=== PATIENT | female | born 1980 | race Two or more races ===

== ENCOUNTER 2016-06-05 17:57 | Emergency (ER) | payer MEDICAID, MEDICARE, OTHER ==
[~2016-06-05] VITALS: Ht 167.6 cm; Wt 517.1 kg
[~2016-06-05 17:57] MED LIST: GABAPENTIN600 MG ORAL; LAMOTRIGINE ORAL; LEVOTHYROXINE150 MCG ORAL; LEXAPRO20 MG ORAL; QUETIAPINE FUMA25 MG ORAL; VITAMIN D1000 UNI1 ORAL; [UNRECOGNIZED DRUG - OTHER] ORAL
[2016-06-05 18:02] VITALS: BP 128/86
[2016-06-05] MEDS ORDERED: Naloxone 1mg/ml 2ml IVP ONE (18:15)
[2016-06-05 18:37] LABS: BASOPHILS % (AUTO) 1.5 % (0.0-2.0); LYMPHOCYTES % (AUTO) 32.2 % (20.0-45.0); MEAN CORPUSCULAR HEMOGLOBIN 31.5 PG (27.0-31.0); MEAN CORPUSCULAR HGB CONC 33.4 G/DL (32.0-36.0); MEAN CORPUSCULAR VOLUME 94 FL (80-99); MEAN PLATELET VOLUME 5.7 FL (6.5-10.1); MONOCYTES % (AUTO) 7.4 % (1.0-10.0); NEUTROPHILS % (AUTO) 55.9 % (45.0-75.0); PLATELET COUNT 253 K/UL (150-450); RED CELL DISTRIBUTION WIDTH 12.2 % (11.6-14.8); WHITE BLOOD COUNT 7.4 K/UL (4.8-10.8)
[2016-06-05 18:48] LABS: ACETAMINOPHEN < 10 ug/mL (10-30); ALANINE AMINOTRANSFERASE 10 U/L (3-33); ALBUMIN/GLOBULIN RATIO 1.3 (1.0-2.7); ALCOHOL < 10 mg/dL; ANION GAP 17 (5-15); ASPARTATE AMINO TRANSFERASE 19 U/L (5-40); CALCIUM 8.1 mg/dL (8.6-10.2); CARBON DIOXIDE 21 mEQ/L (20-30); CHLORIDE 100 mEQ/L (98-107); CREATININE 0.8 mg/dL (0.5-0.9); GLOMERULAR FILTRATION RATE > 60 mL/min (>60); HEMOLYSIS 82; POTASSIUM 3.9 mEQ/L (3.4-4.9); SODIUM 138 mEQ/L (135-145); TOTAL PROTEIN 6.9 g/dL (6.6-8.7)
[2016-06-05 18:58] LABS: THYROID STIMULATING HORMONE 0.396 uIU/mL (0.300-4.500)
[2016-06-05 19:15] VITALS: BP 125/89
[2016-06-05] MEDS ORDERED: QUETIAPINE FUM300 MG ORAL (19:23)
[2016-06-05] MEDS ORDERED: TEMAZEPAM15 MG ORAL (19:23)
[2016-06-05] MEDS ORDERED: LEXAPRO20 MG ORAL (19:23)
[2016-06-05] MEDS ORDERED: ALPRAZOLAM2 MG ORAL (19:23)
[2016-06-05] MEDS ORDERED: QUETIAPINE FUMA50 MG ORAL (19:23)
[2016-06-05] MEDS ORDERED: MIRTAZAPINE15 M3 ORAL (19:23)
[2016-06-05 19:24] LABS: APPEARANCE,URINE CLEAR; KETONES,URINE NEGATIVE (NEGATIVE); LEUKOCYTE ESTERASE ,URINE NEGATIVE (NEGATIVE); NITRITE,URINE NEGATIVE (NEGATIVE); PH,URINE 6 (4.5-8.0); PROTEIN,URINE NEGATIVE (NEGATIVE); UROBILINOGEN,URINE NORMAL MG/DL (0.0-1.0)
--- NOTE | 2016-06-05 19:51 | Emergency Room Report ---
History of Present Illness General Chief Complaint: Altered Level of Consciousness Source: EMS Present Illness HPI This patient is brought in by EMS for altered mental status. The patient has a history of drug abuse including heroin. EMS reports that they were called by her boyfriend he reports that she became altered suddenly and was not arousable. There is no history of alcohol use. There is no history of trauma. The patient was discharged from rehabilitation today. There is no other history available. Allergies: Coded Allergies: CODEINE (Verified Adverse Reaction, Severe, nausea, 06/05/16) Patient History Past Medical History: see triage record, psych hx, other - Hx of drug abuse Past Surgical History: other - Thyroid Social History: Reports: drug use Reviewed Nursing Documentation: PMH: Agreed, PSxH: Agreed Nursing Documentation-PMH Hx Cardiac Problems: No Hx Hypertension: No Hx Pacemaker: No Hx Asthma: No Hx COPD: No Hx Diabetes: No Hx Cancer: Yes - thyroid Hx Gastrointestinal Problems: No - drug abuse Hx Dialysis: No Hx Neurological Problems: Yes Hx Cerebrovascular Accident: No Hx Seizures: No Review of Systems All Other Systems: limited Physical Exam Vital Signs Date Time Temp Pulse Resp B/P Pulse Ox O2 Delivery O2 Flow Rate FiO2 06/05/16 17:50 98.1 86 16 130/80 98 Room Air Sp02 EP Interpretation: reviewed, normal General Appearance: no apparent distress, non-toxic, other - obutunded but localizes to pain Head: normocephalic, atraumatic Eyes: bilateral eye PERRL, bilateral eye normal inspection ENT: normal pharynx, no angioedema, normal voice Neck: full range of motion Respiratory: chest non-tender, lungs clear, normal breath sounds, no respiratory distress, no retraction, no accessory muscle use Cardiovascular #1: regular rate, rhythm, no edema Gastrointestinal: normal bowel sounds, soft, non-distended, no guarding, no rebound Rectal: deferred Musculoskeletal: back normal, normal range of motion Neurologic: sensory intact, other - obtunded, unable to fully assess. Non- focal Skin: normal color, no rash, warm/dry, well hydrated Medical Decision Making Diagnostic Impression: Primary Impression: Altered level of consciousness Additional Impressions: Drug abuse Benzodiazepine overdose ER Course This patient presents with altered mental status. She is a known history of drug abuse of heroin abuse. She was given Narcan and had a short time frame of increased alertness. She underwent basic laboratory workup to include CBC, CMP , thyroid function past, urinalysis, urine drug screen, tox screen and test. She was found to have positive benzodiazepines in her urinalysis. This would explain her decreased mentation. She did maintain her airway and did not require any airway intervention. I also felt that given her stable vital signs and that she is protecting her airway, she did not need flumazenil as the risk outweighs the benefit. She was allowed to detox in the emergency department. Anticipate discharge home if the patient clears her mental status. This patient is turned over to Dr. Chong. Labs Test 06/05/16 18:10 06/05/16 18:22 White Blood Count 7.4 K/UL (4.8-10.8) Red Blood Count 3.40 M/UL (4.20-5.40) Hemoglobin 10.7 G/DL (12.0-16.0) Hematocrit 32.0 % (37.0-47.0) Mean Corpuscular Volume 94 FL (80-99) Mean Corpuscular Hemoglobin 31.5 PG (27.0-31.0) Mean Corpuscular Hemoglobin Concent 33.4 G/DL (32.0-36.0) Red Cell Distribution Width 12.2 % (11.6-14.8) Platelet Count 253 K/UL (150-450) Mean Platelet Volume 5.7 FL (6.5-10.1) Neutrophils (%) (Auto) 55.9 % (45.0-75.0) Lymphocytes (%) (Auto) 32.2 % (20.0-45.0) Monocytes (%) (Auto) 7.4 % (1.0-10.0) Eosinophils (%) (Auto) 3.0 % (0.0-3.0) Basophils (%) (Auto) 1.5 % (0.0-2.0) Sodium Level 138 mEQ/L (135-145) Potassium Level 3.9 mEQ/L (3.4-4.9) Chloride Level 100 mEQ/L (98-107) Carbon Dioxide Level 21 mEQ/L (20-30) Anion Gap 17 (5-15) Blood Urea Nitrogen 17 mg/dL (7-23) Creatinine 0.8 mg/dL (0.5-0.9) Estimat Glomerular Filtration Rate > 60 mL/min (>60) Glucose Level 120 mg/dL (74-106) Calcium Level 8.1 mg/dL (8.6-10.2) Total Bilirubin < 0.2 mg/dL (0.0-1.2) Aspartate Amino Transf (AST/SGOT) 19 U/L (5-40) Alanine Aminotransferase (ALT/SGPT) 10 U/L (3-33) Alkaline Phosphatase 48 U/L (35-104) Total Protein 6.9 g/dL (6.6-8.7) Albumin 4.0 g/dL (3.5-5.2) Globulin 2.9 g/dL Albumin/Globulin Ratio 1.3 (1.0-2.7) Thyroid Stimulating Hormone (TSH) 0.396 uIU/mL (0.300-4.500) Salicylates Level < 1 mg/dL (10-30) Acetaminophen Level < 10 ug/mL (10-30) Serum Alcohol < 10 mg/dL Urine Color Pale yellow Urine Appearance Clear Urine pH 6 (4.5-8.0) Urine Specific [place] 1.020 (1.005-1.035) Urine Protein Negative (NEGATIVE) Urine Glucose (UA) Negative (NEGATIVE) Urine Ketones Negative (NEGATIVE) Urine Occult Blood Negative (NEGATIVE) Urine Nitrite Negative (NEGATIVE) Urine Bilirubin Negative (NEGATIVE) Urine Urobilinogen Normal MG/DL (0.0-1.0) Urine Leukocyte Esterase Negative (NEGATIVE) Urine HCG, Qualitative Negative Urine Opiates Screen Negative (NEGATIVE) Urine Barbiturates Screen Negative (NEGATIVE) Phencyclidine (PCP) Screen Negative (NEGATIVE) Urine Amphetamines Screen Negative (NEGATIVE) Urine Benzodiazepines Screen Positive (NEGATIVE) Urine Cocaine Screen Negative (NEGATIVE) Urine Marijuana (THC) Screen Negative (NEGATIVE) EKG Diagnostic Results Rate: tachycardiac ST Segments: no acute changes Other Impression S.tachycardia Rhythm Strip Diag. Results EP Interpretation: yes Rate: 120's Rhythm: NSR, no PVC's, no ectopy CT/MRI/US Diagnostic Results CT/MRI/US Diagnostic Results : Imaging Test Ordered: CT head Impression No acute findings. See official report. Last Vital Signs Date Time Temp Pulse Resp B/P Pulse Ox O2 Delivery O2 Flow Rate FiO2 06/05/16 18:02 98.1 119 12 128/86 100 Room Air Condition: Serious TOREY SHELTON D.O. Jun 05, 2016 19:51
[2016-06-05 20:23] VITALS: BP 130/78
[2016-06-05 21:20] VITALS: BP 140/80
[2016-06-05 22:24] VITALS: BP 126/89
[2016-06-06] VITALS (13 sets, daily range): BP systolic 122–149; BP diastolic 74–100
--- NOTE | 2016-06-06 08:59 | Emergency Room Report ---
Physical Exam Vital Signs Date Time Temp Pulse Resp B/P Pulse Ox O2 Delivery O2 Flow Rate FiO2 06/05/16 17:50 98.1 86 16 130/80 98 Room Air Medical Decision Making Diagnostic Impression: Primary Impression: Altered level of consciousness Additional Impressions: Drug abuse Benzodiazepine overdose Qualified Codes: T42.4X1A - Poisoning by benzodiazepines, accidental ( unintentional), initial encounter ER Course Hospital Course 36-year-old female presents to ED with altered mental status. h/o drug abuse Clinical course Patient initially seen and evaluated by Dr. Yost; please see her note for full history and physical Labs reviewed-electrolytes okay, no leukocytosis, hemoglobin/hematocrit stable, Utox + BZs Patient allowed S. On reassessment patient remains altered and lethargic. I do not believe patient can be safely discharged at this time. Patient will be admitted case discussed with Dr. Owens and he agreed to accept the patient to his service for further care and support i. I feel this is a highly complex case requiring extensive working including EKG/Rhythm strip, Xray/CT/US, Blood/urine lab work, repeat exams while in ED, and administration of strong opiates/narcotics for pain control, admission to hospital or close patient follow up. Diagnosis - ALOC, drug abuse, BZ overdose Admitted to floor in serious condition Labs Test 06/05/16 18:10 06/05/16 18:22 White Blood Count 7.4 K/UL (4.8-10.8) Red Blood Count 3.40 M/UL (4.20-5.40) Hemoglobin 10.7 G/DL (12.0-16.0) Hematocrit 32.0 % (37.0-47.0) Mean Corpuscular Volume 94 FL (80-99) Mean Corpuscular Hemoglobin 31.5 PG (27.0-31.0) Mean Corpuscular Hemoglobin Concent 33.4 G/DL (32.0-36.0) Red Cell Distribution Width 12.2 % (11.6-14.8) Platelet Count 253 K/UL (150-450) Mean Platelet Volume 5.7 FL (6.5-10.1) Neutrophils (%) (Auto) 55.9 % (45.0-75.0) Lymphocytes (%) (Auto) 32.2 % (20.0-45.0) Monocytes (%) (Auto) 7.4 % (1.0-10.0) Eosinophils (%) (Auto) 3.0 % (0.0-3.0) Basophils (%) (Auto) 1.5 % (0.0-2.0) Sodium Level 138 mEQ/L (135-145) Potassium Level 3.9 mEQ/L (3.4-4.9) Chloride Level 100 mEQ/L (98-107) Carbon Dioxide Level 21 mEQ/L (20-30) Anion Gap 17 (5-15) Blood Urea Nitrogen 17 mg/dL (7-23) Creatinine 0.8 mg/dL (0.5-0.9) Estimat Glomerular Filtration Rate > 60 mL/min (>60) Glucose Level 120 mg/dL (74-106) Calcium Level 8.1 mg/dL (8.6-10.2) Total Bilirubin < 0.2 mg/dL (0.0-1.2) Aspartate Amino Transf (AST/SGOT) 19 U/L (5-40) Alanine Aminotransferase (ALT/SGPT) 10 U/L (3-33) Alkaline Phosphatase 48 U/L (35-104) Total Protein 6.9 g/dL (6.6-8.7) Albumin 4.0 g/dL (3.5-5.2) Globulin 2.9 g/dL Albumin/Globulin Ratio 1.3 (1.0-2.7) Thyroid Stimulating Hormone (TSH) 0.396 uIU/mL (0.300-4.500) Salicylates Level < 1 mg/dL (10-30) Acetaminophen Level < 10 ug/mL (10-30) Serum Alcohol < 10 mg/dL Urine Color Pale yellow Urine Appearance Clear Urine pH 6 (4.5-8.0) Urine Specific [place] 1.020 (1.005-1.035) Urine Protein Negative (NEGATIVE) Urine Glucose (UA) Negative (NEGATIVE) Urine Ketones Negative (NEGATIVE) Urine Occult Blood Negative (NEGATIVE) Urine Nitrite Negative (NEGATIVE) Urine Bilirubin Negative (NEGATIVE) Urine Urobilinogen Normal MG/DL (0.0-1.0) Urine Leukocyte Esterase Negative (NEGATIVE) Urine HCG, Qualitative Negative Urine Opiates Screen Negative (NEGATIVE) Urine Barbiturates Screen Negative (NEGATIVE) Phencyclidine (PCP) Screen Negative (NEGATIVE) Urine Amphetamines Screen Negative (NEGATIVE) Urine Benzodiazepines Screen Positive (NEGATIVE) Urine Cocaine Screen Negative (NEGATIVE) Urine Marijuana (THC) Screen Negative (NEGATIVE) Last Vital Signs Date Time Temp Pulse Resp B/P Pulse Ox O2 Delivery O2 Flow Rate FiO2 06/06/16 08:35 106 21 135/93 100 Room Air 06/05/16 22:24 97.2 Status: improved Disposition: ADMITTED INPATIENT Condition: Serious Referrals: NOT CHOSEN IPA/,REFERRING (PCP) LISA YOON M.D. Jun 06, 2016 08:59
--- NOTE | 2016-06-06 10:38 | Diagnostic Imaging Report ---
Indication: Headache Technique: Contiguous 5 mm thick transaxial imaging of the head obtained in a Siemens Sensation [address] scanner. Soft tissue and bone windows generated. Total Dose length Product (DLP): [address] Dose Index Volume (CTDIvol): 70.38 mGy Comparison: none Findings: The size and configuration of the cortical sulci, basal cisterns, and ventricles are within normal limits for age. There is no mass effect, midline shift, or edema identified. There is no evidence of acute hemorrhage or abnormal intra-axial or extra-axial fluid collections. The bones and soft tissues are unremarkable. Impression: No mass effect, edema or acute bleed. The CT scanner at [facility] [place] is accredited by the [employer] and the scans are performed using protocols designed to limit radiation exposure to as low as reasonably achievable to attain images of sufficient resolution adequate for diagnostic evaluation.
--- NOTE | 2016-06-07 20:32 | Cardiology Report ---
APPROVED REPORT EKG Measurement Heart [id number] Sinus tachycardia Septal infarct, age undetermined Abnormal ECG
== END 2016-06-06 14:20 | disposition other institution (70) ==
LOC: EDBD 17:57 → EMR 18:31 → EDBEDREQ 06-06 08:36 → EMR 06-06 14:20
DX: T42.4X1A Poisoning by benzodiazepines, accidental (unintentional), initial encounter (principal); R41.82 Altered mental status, unspecified; Y92.9 Unspecified place or not applicable; F11.10 Opioid abuse, uncomplicated; Z85.850 Personal history of malignant neoplasm of thyroid
CPT/HCPCS: 36415; 70450; 80053; 80300; 81003; 81025; 84443; 85025; 93005; 96374; 96375; 99284; G0480; J2310; 80329

== ENCOUNTER 2020-01-01 15:34 | Emergency (ER) | payer MEDICARE ==
[~2020-01-01] VITALS: Ht 162.6 cm; Wt 56.7 kg
[~2020-01-01 15:34] MED LIST changes: +ALPRAZOLAM2 MG ORAL; +MIRTAZAPINE15 M3 ORAL; +QUETIAPINE FUM300 MG ORAL; +QUETIAPINE FUMA50 MG ORAL; +TEMAZEPAM15 MG ORAL
--- NOTE | 2020-01-01 15:41 | Emergency Room Report ---
History of Present Illness General Chief Complaint: Overdose Source: Patient Present Illness HPI 39-year-old female physical history of polysubstance abuse including heroin use presents by ambulance with altered mental status. Patient states that she bought [address] and took them 2 hrs prior to arrival. Per EMS, patient was unresponsive. No focal deficits. She received Narcan 4 mg IV prior to arrival. She is currently GCS 15 Denies any complaints at this time. Is stating that she wants her to pick her up. The patient's symptoms were gradual onset, severity was moderate, duration since 1 days. Quality: no pain Past medical history: Thyroid cancer, polysubstance abuse/heroin Past surgical history: Thyroidectomy Smoking: Occasional Alcohol use: Occasional Drug use: Heroin Review of systems: CONST: No fevers or chills, No night sweats PULMONARY: No productive cough, No shortness of breath CARDIAC: No chest pain, No palpitations GI: No vomiting, No diarrhea , No melena_or_BRBPR : No dysuria, No hematuria, No discharge NEURO: No new_focal_weakness_or_numbness, No confusion, No vision changes 14 point Review of Systems is otherwise negative except per HPI Physical Exam: GENERAL: Awake_alert_ nontoxic, no acute distress Spo2 96 % on RA -normal EYES: Extraocular muscles are intact. Conjunctivae clear. Lids without swelling. No proptosis ENT: External nose and ear normal_in_appearance. Oropharynx clear. Head_ atraumatic, Moist_oral_mucosa NECK: No JVD. No meningismus. No thyromegaly. Supple. Trachea midline RESP: Normal respiratory effort. Symmetric rise. No stridor. Clear_to_ auscultation_No_rales_No_wheezes CARDIAC: Regular rate and regular rhythm on_auscultation No_significant pedal edema. ABDOMEN: Soft. Nondistended. Nontender_No_rebound_or_guarding. MSK: Normal muscle tone, without rigidity. Extremities without asymmetric deformity or swelling. SKIN: Warm and dry. No visible cyanosis or pallor NEUROLOGIC: Alert, oriented x 3. Motor_and_sensation_grossly_intact. No truncal ataxia. Gait_normal Psych: Normal mood and affect, normal judgment and insight - COORDINATION OF CARE Case was discussed with: Patient Any imaging that were ordered were interpreted as part of the medical decision making: Medical Decision Making/Plan: Differential diagnosis includes opiate overdose, illicit drug abuse, alcohol intoxication, alcohol withdrawal, hypoglycemia, drug intoxication or overdose, head injury, among others. Vital signs are unremarkable. Patient is afebrile. Upon arrival the patients fingerstick glucose was normal with no evidence of hypoglycemia. She had no repeat episodes of altered mental status. She remained neurologically intact, GCS 15. She was ambulatory without ataxia. No nystagmus noted. The patient has no evidence of injury or tenderness of the head or neck, thus immediate imaging of the brain and spine was not felt to be necessary. The patient has no significant tremors or tachycardia. Presentation seems most consistent with benzodiazepine use. The patient was observed in the emergency department with serial neurologic exams with complete resolution of their altered mental status (in fact was never altered in ED). Never required repeat narcan. - REASSESSMENT - After serial neurologic exams in the emergency department, the patients mental status significantly improved. The patient was able to follow commands and is clinically sober. They have no focal neurologic deficits and were able to ambulate with a steady gait without assistance. Labs show UDS positive for benzodiazepines. EtOH is mildly elevated at 10. test is negative. TSH is elevated, consistent with her history of hypothyroidism from thyroidectomy. She is already on synthroid 200mcg daily and states she will follow up with her PMD in 1-2 day for further management. No evidence of myxedema coma at this time The patients presentation seems to be consistent with benzodiazepine use, which has resolved, without any complications such as alcohol withdrawal, head injury, GI bleeding, or intracranial bleeding. The patient appears to be safe for discharge home. Patient understands not to drive and appears able to care for themselves. DMV form filed and faxed. Pertinent results reviewed with the patient. I educated the patient on the current treatment plan including the risks, benefits, and alternatives. I also discussed the extent and limitations of the current evaluation. The patient expressed understanding and agreement with plan. I recommended PMD follow-up within 1-2 days. Also advised that the patient return to the Emergency Department as soon as possible if they experience any new, persistent, or worsening symptoms. Patient was discharged to the care of her . Allergies: Coded Allergies: CODEINE (Verified Adverse Reaction, Severe, nausea, 06/05/16) COVID-19 Screening Contact w/high risk pt: No Experienced COVID-19 symptoms?: No COVID-19 Testing performed CIRCUS RIDER: No Patient History Now: No Nursing Documentation-PMH Hx Hypertension: No Hx Pacemaker: No Hx Asthma: No Hx COPD: No Hx Diabetes: Yes Hx Cancer: Yes - thyroid cancer Hx Gastrointestinal Problems: No - drug abuse Hx Dialysis: No History Of Psychiatric Problem: Yes Hx Neurological Problems: Yes Hx Cerebrovascular Accident: No Hx Seizures: Yes Physical Exam Vital Signs Date Time Temp Pulse Resp B/P (MAP) Pulse Ox O2 Delivery O2 Flow Rate FiO2 01/01/20 15:31 97.5 78 18 129/75 (93) 100 Room Air Sp02 EP Interpretation: reviewed, normal Medical Decision Making Diagnostic Impression: Primary Impression: Mild benzodiazepine use disorder Additional Impression: Hypothyroidism Reevaluation Time: 17:29 Last Vital Signs Date Time Temp Pulse Resp B/P (MAP) Pulse Ox O2 Delivery O2 Flow Rate FiO2 01/01/20 15:31 97.5 78 18 129/75 (93) 100 Room Air Status: improved Disposition: HOME, SELF-CARE Admit Decision Time: 17:29 Condition: Stable Scripts Naloxone HCl (Narcan) 4 Mg [place] 4 MG NS ONCE for OPIATE OVERDOSE for 1 Day, #1 SPRAY Prov: Patricia Cleveland D.O. 01/01/20 Patient Instructions: Alcohol Abuse and Nutrition, Benzodiazepine Withdrawal Additional Instructions: Instructions for patient/english composition teacher: Follow up with your physician in 1 to 2 days regarding your hypothyroidism. Refrain from taking street drugs. Do not drive while under the influence drugs as this is harmful to you and other people. Follow-up with your doctor sooner if your condition requires a more timely clinical reevaluation. Return to the emergency department immediately if you feel that your condition is worsening or if you have any new or concerning symptoms. Review your discharge instructions and take any prescriptions given as instructed. Patricia Cleveland D.O. Jan 01, 2020 15:41
[2020-01-01 16:15] VITALS: BP 124/76
[2020-01-01 16:41] LABS: BASOPHILS % (AUTO) 1.3 % (0.0-2.0); EOSINOPHILS % (AUTO) 2.2 % (0.0-3.0); HEMATOCRIT 40.8 % (37.0-47.0); HEMOGLOBIN 13.5 G/DL (12.0-16.0); LYMPHOCYTES % (AUTO) 38.1 % (20.0-45.0); MEAN CORPUSCULAR VOLUME 92 FL (80-99); MONOCYTES % (AUTO) 3.2 % (1.0-10.0); NEUTROPHILS % (AUTO) 55.1 % (45.0-75.0); PLATELET COUNT 230 K/UL (150-450); RED BLOOD COUNT 4.44 M/UL (4.20-5.40); RED CELL DISTRIBUTION WIDTH 15.1 % (11.6-14.8); WHITE BLOOD COUNT 9.1 K/UL (4.8-10.8)
[2020-01-01 16:48] LABS: APPEARANCE,URINE CLEAR; BILIRUBIN, URINE NEGATIVE (NEGATIVE); COLOR,URINE PALE YELLOW; GLUCOSE, URINE (UA) NEGATIVE (NEGATIVE); KETONES,URINE NEGATIVE (NEGATIVE); LEUKOCYTE ESTERASE ,URINE NEGATIVE (NEGATIVE); NITRITE,URINE NEGATIVE (NEGATIVE); PH,URINE 6 (4.5-8.0); PROTEIN,URINE NEGATIVE (NEGATIVE); UROBILINOGEN,URINE NORMAL MG/DL (0.0-1.0)
[2020-01-01 17:04] LABS: ALANINE AMINOTRANSFERASE 68 U/L (12-78); ALBUMIN 4.1 G/DL (3.4-5.0); ALBUMIN/GLOBULIN RATIO 1.1 (1.0-2.7); ALKALINE PHOSPHATASE 90 U/L (46-116); ANION GAP 7 mmol/L (5-15); ASPARTATE AMINO TRANSFERASE 52 U/L (15-37); BILIRUBIN,TOTAL 0.4 MG/DL (0.2-1.0); BLOOD UREA NITROGEN 22 mg/dL (7-18); CALCIUM 8.2 MG/DL (8.5-10.1); CARBON DIOXIDE 30 MMOL/L (21-32); CHLORIDE 103 MMOL/L (98-107); CREATININE 1.2 MG/DL (0.55-1.30); POTASSIUM 3.7 MMOL/L (3.5-5.1); SODIUM 140 MMOL/L (136-145)
[2020-01-01] MEDS ORDERED: NARCAN4 MG NS (17:36)
[2020-01-01 17:48] VITALS: BP 128/76
== END 2020-01-01 17:48 | disposition home or self-care (01) ==
LOC: EDBD 15:34 → EMR 17:00
DX: F13.10 Sedative, hypnotic or anxiolytic abuse, uncomplicated (principal); E89.0 Postprocedural hypothyroidism; Z85.850 Personal history of malignant neoplasm of thyroid; Z88.6 Allergy status to analgesic agent
CPT/HCPCS: 36415; 80053; 80307; 81003; 81025; 82962; 84443; 84702; 85025; 96360; 99284; G0480